=== PATIENT | male | born 1965 | race Caucasian/White ===

== ENCOUNTER 2021-10-25 05:56 | Inpatient (IN) | payer MEDICARE, OTHER ==
[~2021-10-25] VITALS: Ht 188 cm; Wt 84.8 kg
[2021-10-25 07:46] LABS: HEMOGLOBIN 9.7 gm/dl (14.0-17.5); RED BLOOD COUNT 3.23 M/UL (4.20-5.50); WHITE BLOOD COUNT 6.2 K/UL (4.5-11.0)
[2021-10-25] MEDS ORDERED: ADALAT CC30 MG PO (11:43)
[2021-10-25] MEDS ORDERED: ATORVASTATIN CA40 MG PO (11:43)
[2021-10-25] MEDS ORDERED: LOKELMA10 GM PO (11:44)
[2021-10-25] MEDS ORDERED: FLOMAX 0.4 MG0.4 MG PO (11:45)
[2021-10-25] MEDS ORDERED: DICYCLOMINE HCL10 MG PO (11:46)
[2021-10-25] MEDS ORDERED: OMEPRAZOLE20 MG PO (11:46)
[2021-10-25] MEDS ORDERED: PAROXETINE HCL20 MG PO (11:46)
[2021-10-25] MEDS ORDERED: NOVOLOG FL100 UNIT/1 SQ (11:46)
[2021-10-25] MEDS ORDERED: SODIUM BICARBO650 MG PO (11:47)
[2021-10-25] MEDS ORDERED: REMERON 15 MG T15 MG PO (11:47)
[2021-10-25] MEDS ORDERED: COREG 25MG TAB25 MG PO (19:08)
[2021-10-25] MEDS ORDERED: CLONIDINE HCL0.3 MG PO (19:12)
[2021-10-25] MEDS ORDERED: HYGROTON TAB 2525 MG PO (19:13)
[2021-10-25] MEDS ORDERED: NIFEDIPINE ER30 MG PO (19:14)
[2021-10-25] MEDS ORDERED: AMLODIPINE BESY10 MG PO (19:18)
[2021-10-27 03:48] LABS: HEMOGLOBIN 9.6 gm/dl (14.0-17.5); RED BLOOD COUNT 3.1 M/UL (4.20-5.50)
[2021-10-27 03:51] LABS: WHITE BLOOD COUNT 3.9 K/UL (4.5-11.0)
[2021-10-28] MEDS ORDERED: COREG6.25 MG PO (10:06)
[2021-10-28] MEDS ORDERED: CATAPRES 0.1MG0.1 MG PO (10:06)
[2021-10-28] MEDS ORDERED: HYDRALAZINE HCL25 MG PO (10:06)
== END 2021-10-28 12:58 | disposition home or self-care (01) | DRG 92 ==
LOC: ER1 05:56 → CDU 09:52 → PROG CARE 09:52
PROVIDERS: Emergency Medicine; ADMIT Internal Medicine Infectious Disease
DX: G92.8 Other toxic encephalopathy (principal); I12.0 Hypertensive chronic kidney disease with stage 5 chronic kidney disease or end stage renal disease; N18.5 Chronic kidney disease, stage 5; N17.9 Acute kidney failure, unspecified; Z20.822 Contact with and (suspected) exposure to COVID-19; D63.1 Anemia in chronic kidney disease; T42.8X5A Adverse effect of antiparkinsonism drugs and other central muscle-tone depressants, initial encounter; E11.22 Type 2 diabetes mellitus with diabetic chronic kidney disease; R00.1 Bradycardia, unspecified; R53.81 Other malaise; Z86.73 Personal history of transient ischemic attack (TIA), and cerebral infarction without residual deficits; Z90.49 Acquired absence of other specified parts of digestive tract; Z80.0 Family history of malignant neoplasm of digestive organs; Z82.49 Family history of ischemic heart disease and other diseases of the circulatory system; Z79.4 Long term (current) use of insulin; Z98.84 Bariatric surgery status
CPT/HCPCS: 0240U; 36415; 71045; 80048; 80053; 80307; 81001; 82550; 82553; 82728; 82803; 82962; 83036; 83540; 83550; 83605; 83735; 83874; 84443; 84484; 85025; 87040; 97161; 99285; J1644; J7030